=== PATIENT | female | born 1995 | race American Indian/Alaskan Native ===

== ENCOUNTER 2021-04-20 21:39 | Emergency (ER) | payer MEDICAID ==
[2021-04-20 21:46] VITALS: BP 118/74; PULSE 63
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
--- NOTE | 2021-04-21 18:27 | US ---
Bilateral lower extremity deep venous ultrasound: Duplex and color Doppler evaluation was obtained of the right common femoral, proximal greater saphenous, superficial femoral, popliteal, posterior tibial and peroneal veins. Comparison: No prior venous imaging is available. Findings: There is a fluid collection being seen within the right distal calf measuring 4.2 x 5.2 x 0.9 cm. This is nonspecific and please correlate if patient has had previous injury in this area to represent a liquefied hematoma. Normal phasic flow, augmentation and compression is seen. Impression: 1. Fluid collection as noted above. 2. No findings of deep venous thrombosis within either lower extremity. Diagnostic code #2 I agree with preliminary report from [facility], finalized on 04/21/21, 12:18 AM CDT, code 1
== END 2021-04-20 23:45 | disposition home or self-care (01) ==
LOC: JD.ED 21:39
DX: M79.604 Pain in right leg (principal); Z91.018 Allergy to other foods
CPT/HCPCS: 36415; 80053; 85025; 93970; 93970-26; 99283; 99284-25

== ENCOUNTER 2022-03-03 13:23 | Emergency (ER) | payer SELFPAY ==
[2022-03-03] MEDS ORDERED: HYDROmorphone 0.5 MG/0.5 ML Syringe IVPUSH ONE (13:56)
[2022-03-03] MEDS ORDERED: Metoclopramide 10 MG/2 ML SDV IVPUSH ONE (13:58)
[2022-03-03] MEDS ORDERED: Dextrose 5%-Lactated Ringers 1,000 ML IV SCH (14:00)
[2022-03-03 15:21] VITALS: BP 127/70; PULSE 92
== END 2022-03-03 15:15 | disposition home or self-care (01) ==
LOC: JD.ED 13:23
DX: R07.89 Other chest pain (principal); R07.2 Precordial pain; F10.230 Alcohol dependence with withdrawal, uncomplicated; Z91.018 Allergy to other foods; Y90.0 Blood alcohol level of less than 20 mg/100 ml
CPT/HCPCS: 36415; 71045; 71045-26; 80053; 80307; 82009; 83605; 83690; 83735; 84703; 85025; 85610; 85730; 86140; 93005; 99285-25